=== PATIENT | male | born 1975 | race Caucasian/White ===

== ENCOUNTER 2018-08-30 13:16 | Emergency (ER) | payer MEDICAID ==
[2018-08-30 13:23] VITALS: O2SAT 98
--- NOTE | 2018-08-30 14:24 | C.PDOC ---
History Of Present Illness 43 y/o male with hx testicular ca, finished treatment 6 years ago, c/o right mid back pain x 3 days. pain worse with deep breathing, but no cough, fever, chills, sob, leg swelling, no recent immobilization. denies trauma. Time Seen by Provider: 08/30/18 13:29 Chief Complaint (Nursing): Back Pain History Per: Patient History/Exam Limitations: no limitations Onset/Duration Of Symptoms: Days (3) Current Symptoms Are (Timing): Still Present Quality Of Discomfort: "Pain" Severity: Moderate Previous Symptoms: None Associated Symptoms: None Exacerbating Factor(s): Other (breathing) Recent travel outside of the [place]: No Past Medical History Reviewed: Historical Data, Nursing Documentation, Vital Signs Vital Signs: Last Vital Signs Temp 98.1 F 08/30/18 13:20 Pulse 82 08/30/18 13:20 Resp 16 08/30/18 13:20 BP 147/86 08/30/18 13:20 Pulse Ox 98 08/30/18 13:20 - Medical History Other PMH: testicular cancer Other Surgeries: teste Family History: States: Unknown Family Hx - Social History Hx Alcohol Use: No Hx Substance Use: No - Immunization History Hx Tetanus Toxoid Vaccination: No Hx Influenza Vaccination: No Hx Pneumococcal Vaccination: No Review Of Systems Constitutional: Negative for: Fever, Chills Cardiovascular: Negative for: Chest Pain Respiratory: Negative for: Cough, Shortness of Breath, SOB with Excertion Gastrointestinal: Negative for: Abdominal Pain Musculoskeletal: Positive for: Back Pain Skin: Negative for: Rash, Lesions, Bruising Neurological: Negative for: Weakness, Numbness Physical Exam - Physical Exam Appears: Non-toxic, No Acute Distress Skin: Warm, Dry Head: Atraumatic, Normacephalic Oral Mucosa: Moist Neck: Supple Cardiovascular: Rhythm Regular, No Murmur Respiratory: No Decreased Breath Sounds, No Rales, No Rhonchi, No Stridor, No Wheezing Back: No Vertebral Tenderness, Paraspinal Tenderness (right thoracic back ) Extremity: Normal ROM, No Tenderness, No Pedal Edema, No Calf Tenderness, No Swelling Neurological/Psych: Oriented x3, Normal Speech, Normal Cognition ED Course And Treatment O2 Sat by Pulse Oximetry: 98 Medical Decision Making Medical Decision Making: pt with remote cancer; backpain x 3 days, worse with breathing; will get cxr and d-dimer. 1537 cxr neg and d-dimer neg. tx for musculoskeletal pain. pt advised to f/u pmd. Disposition Counseled Patient/Family Regarding: Studies Performed, Diagnosis, Need For Followup - Disposition Referrals: Deacon Cuba MD [Medical Doctor] - Disposition: HOME/ ROUTINE Disposition Time: 15:28 Condition: GOOD Additional Instructions: Remove lidoderm patch after 12 hours. Take ibuprofen 600 mg by mouth every 6 hours for pain if needed. Follow up with your primary care doctor in 1-2 days. Return to ER for any worse symptoms. Prescriptions: Ibuprofen [Motrin] 600 mg PO TID #30 tab Instructions: Upper Back Pain (DC) Forms: [facility] ([place]), General Discharge Instructions - Clinical Impression Clinical Impression: Thoracic back pain
--- NOTE | 2018-08-30 14:37 | RAD ---
Date of service: 08/30/2018 HISTORY: pain right back paraspinal area thoracic COMPARISON: No prior chest x-rays available. TECHNIQUE: Chest PA and lateral FINDINGS: LUNGS: No active pulmonary disease. PLEURA: No significant pleural effusion identified. No pneumothorax apparent. CARDIOVASCULAR: No aortic atherosclerotic calcification present. Normal cardiac size. No pulmonary vascular congestion. OSSEOUS STRUCTURES: No significant abnormalities. VISUALIZED UPPER ABDOMEN: Normal. OTHER FINDINGS: None. IMPRESSION: No active disease appreciated. Clinical follow-up recommended.
[2018-08-30] MEDS ORDERED: Lidocaine 5% Patch TD STA (14:59)
[2018-08-30] MEDS ORDERED: Lidocaine 5% Patch TD ONE (15:09)
[2018-08-30 15:14] VITALS: BP 111/75; PULSE 68; RESP 20; TEMP 98.4
== END 2018-08-30 15:36 | disposition home or self-care (01) ==
LOC: C.ER 13:16
DX: M54.6 Pain in thoracic spine (principal)
CPT/HCPCS: 71046; 85378; 96372; 99283; J1885